=== PATIENT | female | born 1990 | race Hispanic/Latino ===

== ENCOUNTER 2021-08-28 17:02 | Emergency (ER) | payer SELFPAY | END 2021-08-28 18:34 | disposition short-term general hospital (02) | LOC: MADERS 17:02 | DX: O9A.212 Injury, poisoning and certain other consequences of external causes complicating pregnancy, second trimester (principal); R10.9 Unspecified abdominal pain; W18.2XXA Fall in (into) shower or empty bathtub, initial encounter; Z3A.20 20 weeks gestation of pregnancy | CPT/HCPCS: 99284 ==